=== PATIENT | male | born 1975 | race African-American/Black ===

== ENCOUNTER 2020-08-22 14:51 | Emergency (ER) | payer OTHER, SELFPAY ==
--- NOTE | ~2020-08-22 | CT_ITS ---
EXAMINATION: CT brain wo con DATE: 08/22/2020 18:29 INDICATION: Dizziness. TECHNIQUE: Computed tomography (CT) of the head was performed without intravenous contrast. The mA wa s adjusted according to patient size. Iterative reconstruction technique was employed. The dose-lengt h product was 605.33 mGy-cm. COMPARISON: None FINDINGS: There is no intracranial hemorrhage, acute infarction, or abnormal intracranial mass lesion . The ventricles are normal in size. The paranasal sinuses are clear. The mastoid air cells are star l. IMPRESSION: 1. Normal brain. Reviewed, dictated and finalized at location A. WIRER IMPRESSION: 1. Normal brain.
--- NOTE | ~2020-08-22 | XR_ITS ---
EXAMINATION: XR lumbar spine 2-3V DATE: 08/22/2020 17:23 INDICATION: Right-sided low back pain. TECHNIQUE: 3 views of lumbar spine were obtained. COMPARISON: None. FINDINGS: Bone alignment is normal. Vertebral body heights are normal. There is mildly decreased disc height at L4-L5. The facet joints are unremarkable. IMPRESSION: 1. Mild lumbar spondylosis. Reviewed, dictated and finalized at location A. ECT MANAGER/TEAM COACH IMPRESSION: 1. Mild lumbar spondylosis.
[2020-08-22 15:25] VITALS: BP 144/77; PULSE 78; RESP 18; TEMP 36.7; O2SAT 98
--- NOTE | 2020-08-22 16:16 | PC.NURSE ---
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
[2020-08-22] MEDS: KETOROLAC (*BKC) 60 MG/2 ML VIAL IM (17:47)
[2020-08-22] MEDS: CYCLOBENZAPRINE HCL 10 MG TABLET PO (17:48)
--- NOTE | 2020-08-22 18:02 | PC.NURSE ---
1800 - Upon discharge home patient stating the back of his head is hurting and reports dizziness and is requesting a CT of his head. MD Sherman informed and orders placed.
[2020-08-22 18:43] VITALS: BP 140/74; PULSE 70; RESP 12; O2SAT 99
== END 2020-08-22 19:11 | disposition home or self-care (01) ==
PROVIDERS: Emergency Provider Emergency Medicine
DX: M54.5 Low back pain (principal); G89.29 Other chronic pain; V64.5XXA Driver of heavy transport vehicle injured in collision with heavy transport vehicle or bus in traffic accident, initial encounter
CPT/HCPCS: 70450; 72100; 96372; 99284; A9270; J1885

== ENCOUNTER → 2020-09-24 01:54 | Outpatient (CLI) | payer MEDICAID, SELFPAY ==
[2020-09-24 20:13] LABS: SARS-CoV-2 RNA PCR Negative
== END ==
PROVIDERS: Visit Provider Surgery
DX: Z01.812 Encounter for preprocedural laboratory examination (principal); Z20.822 Contact with and (suspected) exposure to COVID-19
CPT/HCPCS: C9803; U0003; U0005

== ENCOUNTER 2020-09-24 08:26 | Outpatient (CLI) | payer OTHER, SELFPAY ==
[2020-09-24 09:24] LABS: Anion Gap 2 mmol/L (8-16); Blood Urea Nitrogen 11 mg/dL (9-20); Calcium 8.6 mg/dL (8.4-10.2); Carbon Dioxide 34 mmol/L (22-30); Chloride 104 mmol/L (98-107); Estimated Glomerular Filt Rate > 60; Glucose 132 mg/dL (75-110); Potassium 4.1 mmol/L (3.4-5.0); Sodium 140 mmol/L (137-145)
--- NOTE | 2020-09-24 09:30 | ECG_ITS ---
Measurements Intervals [place] Rate: 54 P: 51 CO: 177 QRS: 3 QRSD: 105 T: 21 QT: 395 QTc: 377 Interpretive Statements SINUS BRADYCARDIA DELAYED PRECORDIAL R/S TRANSITION BORDERLINE ECG Electronically Signed On 09-24-2020 9:08:50 CDT by Ted Galaviz D.O.
== END 2020-09-24 08:27 | disposition home or self-care (01) ==
PROVIDERS: Anesthesiology; Visit Provider Surgery
DX: K42.9 Umbilical hernia without obstruction or gangrene (principal); Z01.818 Encounter for other preprocedural examination; R94.31 Abnormal electrocardiogram [ECG] [EKG]
CPT/HCPCS: 36415; 80048; 86850; 86900; 86901; 93005

== ENCOUNTER 2020-09-28 20:35 | Emergency (ER) | payer MEDICAID, SELFPAY ==
[2020-09-28 20:39] VITALS: BP 141/75; PULSE 59; RESP 20; TEMP 36.5; O2SAT 99
--- NOTE | 2020-09-28 20:50 | PC.NURSE ---
Pt presents to ED with complaints of abdominal pain in relation to ventral hernia of which he states he was due to have surgery to repair yesterday. Pt states he came here to try to have surgery done. Pt advised by EDMD that surgery cannot be performed out of pt preference if there is no emergency. Pt upset and stating no one is helping him and he needs to have surgery. EDMD reduced hernia and pt continues to insist that he needs surgery. Pt resting on cart in its lowest position with call button and personal items within reach.
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
--- NOTE | 2020-09-28 21:49 | PC.NURSE ---
Pt refused to take and sign dc papers and refused final vitals.
== END 2020-09-28 22:00 | disposition home or self-care (01) ==
PROVIDERS: Emergency Provider Emergency Medicine
DX: K43.9 Ventral hernia without obstruction or gangrene (principal); J45.909 Unspecified asthma, uncomplicated; E11.9 Type 2 diabetes mellitus without complications; Z79.84 Long term (current) use of oral hypoglycemic drugs; Z87.891 Personal history of nicotine dependence
CPT/HCPCS: 99281